=== PATIENT | female | born 1990 | race Caucasian/White ===

== ENCOUNTER 2025-06-08 17:23 | Emergency (ER) | payer SELFPAY ==
[~2025-06-08] VITALS: Ht 165.1 cm; Wt 100.0 kg
[2025-06-08 17:34] VITALS: TEMP 36.8; O2SAT 100
[2025-06-08] MEDS ORDERED: EPIN0.3P3 IM (19:26)
[2025-06-08] MEDS: DEXAMETHASONE 10 MG/ML VIAL PO ONE (20:15)
[2025-06-08] MEDS: BACITRACIN ZINC OINT UDPKT TOP ONE (20:15)
[2025-06-08] MEDS: FAMOTIDINE 20MG TABLET PO ONE (20:15)
[2025-06-08 20:19] VITALS: BP 146/100; PULSE 68; RESP 14; O2SAT 100
== END 2025-06-08 20:23 | disposition home or self-care (01) ==
LOC: ER 17:23
DX: S00.86XA Insect bite (nonvenomous) of other part of head, initial encounter (principal); Z55.6 Problems related to health literacy; W57.XXXA Bitten or stung by nonvenomous insect and other nonvenomous arthropods, initial encounter; Y93.89 Activity, other specified; Y92.89 Other specified places as the place of occurrence of the external cause; Y99.8 Other external cause status; Z98.890 Other specified postprocedural states
CPT/HCPCS: 99284; J1100